=== PATIENT | female | born 1940 | race Caucasian/White ===

== ENCOUNTER 2016-10-26 18:33 | Emergency (ER) | payer OTHER ==
--- NOTE | ~2016-10-26 | EKG ---
PATIENT: KHANG CHAVIRA UNIT #: [id number] Ventricular Rate: 78 BPM Atrial Rate: 80 BPM QRS Duration: 178 ms Q-T Interval: 448 ms QTC Calculation(Bezet): 510 ms Calculated R [place]: -63 degrees Calculated T [place]: 127 degrees Diagnosis Line: Electronic ventricular pacemaker Diagnosis Line: When compared with ECG of 04-JUL-2014 20:50, Diagnosis Line: Electronic ventricular pacemaker has replaced Diagnosis Line: Atrial fibrillation Diagnosis Line: Confirmed by NOELLE BOYLE MD ([id number]) on Diagnosis Line: 10/28/2016 4:04:34 PM INTERPRETING MD: [place] ANGUIANO
--- NOTE | ~2016-10-26 | CR72 ---
[facility]. [facility] A Service of [facility] & [facility] RADIOLOGY TEXT RESULTS PATIENT: KHANG CHAVIRA LOCATION: SED : 38 UNIT #: [id number] AGE: [address]: Magdiel Rebollar DO SEX: F ORDER DR: [id number] [address] [address] [id number] E MR#: [id number] #: [id number] NAME: KHANG CHAVIRA : 1940 SEX: F STUDY DATE/TIME: 10/26/2016 19:52 UNIT: SED ROOM: STUDY DESCRIPTION: CR Chest Single View Portable Attending Physician: Magdiel Rebollar Ordering Physician: Magdiel Rebollar Primary Care Physician: Cj Ghosh M.D. MEDICAL IMAGING REPORT This report is preliminary unless electronic signature is present. EXAM Portable chest HISTORY Shortness of air, decreased urine output today. COMPARISON 10/10/2016 FINDINGS Portable view chest demonstrates moderate lung volumes slightly under penetrated technique. Cardiomegaly with mild prominence of the pulmonary vascular interstitium could reflect early CHF. Single-lead pacemaker noted. No sizeable effusions. No pneumothorax. Dictated by... Elias Rebollar M.D. THIS IS AN ELECTRONICALLY VERIFIED REPORT Elias Rebollar M.D. at 10/27/2016 2:03 PM JOSE/braeden TD: 10/26/2016 22:47 JOB #: [id number] MEDICAL IMAGING REPORT Page 1 of 1
[~2016-10-26 18:33] MED LIST: ALAVERT10 MG PO; ALDACTONE PO; ALPRAZOLAM PO; AMBIEN PO; AMIODARONE PO; AMOXICILLIN PO; BACLOFEN10 MG PO; BUMEX PO; CARDIZEM CD PO; CARTIA XT180 M1 PO; CIPRO PO; CLARITIN10 M3 PO; COLACE PO; COLESTID PO; DESYREL50 MG PO; DIGITEK125 MC1 PO; FUROSEMIDE40 MG PO; HYDROCODONE 7.5MG PO; KLOR-CON PO; LASIX PO; LEXAPRO PO; LEXAPRO20 MG PO; LORTAB 10-5001 EACH PO; LORTAB 7.5-5001 TAB PO; METOPROLOL PO; METOPROLOL SUCC25 MG PO; MS CONTIN PO; NEURONTIN100 MG PO; NORVASC PO; OMEPRAZOLE40 MG PO; PAREGORIC2 MG/5 ML PO; PHENERGAN PO; PRILOSEC PO; SINGULAIR PO; TEMAZEPAM PO; VICODIN 5/500 T1 TAB PO; WARFARIN PO; WARFARIN SODIUM2 MG PO
[2016-10-26] MEDS ORDERED: LIPITOR PO (18:38)
[2016-10-26] MEDS ORDERED: CYMBALTA PO (18:38)
[2016-10-26] MEDS ORDERED: LISINOPRIL PO (18:38)
[2016-10-26] MEDS ORDERED: BACLOFEN PO (18:41)
[2016-10-26] MEDS ORDERED: LASIX PO (18:49)
[2016-10-26 20:25] LABS: ALBUMIN SERUM 3.8 g/dL (3.5-5.0); BILIRUBIN, DIRECT 0.2 mg/dL (0.0-0.2); BILIRUBIN,INDIRECT 0.7 mg/dL (0.0-0.9); BILIRUBIN,TOTAL 0.9 mg/dL (0.2-2.0); CALCIUM SERUM 8.7 mg/dL (8.4-10.2); GLOM FILT RATE Estimated 54.3 mL/min (>60); POTASSIUM 3.5 mmol/L (3.5-5.1); PROTEIN TOTAL SERUM 7.4 g/dL (6.0-8.3)
[2016-10-26 20:47] LABS: BASOPHIL# 0.1 X10e3 (0-0.3); BASOPHIL% 1.2 % (0-2.5); EOSINOPHIL% 0.7 % (0.0-7.0); HEMATOCRIT 36.3 % (35.0-45.0); HEMOGLOBIN 11.9 gm/dL (12.0-16.0); LYMPHOCYTE# 1.4 X10e3 (1.0-3.5); LYMPHOCYTE% 21.6 % (17.0-45.0); MEAN CELL VOLUME 89.9 FL (83-96); MEAN CORPUSCULAR HEMOGLOBIN 29.5 PG (28-34); MEAN CORPUSCULAR HGB CONC 32.9 g/dL (30-36); MONOCYTE# 0.7 X10e3 (0-1.0); MONOCYTE% 10.8 % (3.0-12.0); NEUTROPHIL# 4.3 X10e3 (1.5-7.1); NEUTROPHIL% 65.7 % (40-75); PLATELET COUNT 208 X10e3 (140-420); RED BLOOD COUNT 4.04 X10e (3.90-5.30); RED CELL DISTRIBUTION WIDTH 15.7 % (11.0-15.5); WHITE BLOOD COUNT 6.6 X10e3 (4.0-10.5)
[2016-10-26 20:48] LABS: DIFF IND NO
[2016-10-26 21:07] LABS: POC - TROPONIN <0.05 ng/mL (<=0.05)
[2016-10-26 22:02] LABS: INR 2.9; PROTHROMBIN TIME (PATIENT) 33.4 SECONDS (9.5-12.4)
[2016-10-26 22:09] LABS: PARTIAL THROMBOPLASTIN TIME 37.6 SECONDS (25.6-38.1)
[2016-10-26 23:55] LABS: URINE SOURCE CLEAN CATCH
[2016-10-26 23:58] LABS: URINE APPEARANCE CLEAR; URINE BILIRUBIN NEG (NEG); URINE BLOOD TRACE-LYSED (NEG); URINE COLOR YELLOW; URINE GLUCOSE NEG (NORM); URINE KETONE NEG (NEG); URINE LEUKOCYTE ESTERASE 1+ (NEG); URINE NITRATE NEG (NEG); URINE PH 6.5 (5-8); URINE PROTEIN NEG (NEG); URINE SPECIFIC GRAVITY <=1.005 (1.003-1.035); URINE UROBILINOGEN 0.2 MG/DL (NORM)
[2016-10-27] LABS: MICRO INDICATED? YES
[2016-10-27 00:08] LABS: CULTURE INDICATED? YES; URINE BACTERIA NEG (NEG); URINE GRANULAR CAST 0-2 /[HPF]; URINE HYALINE CAST 0-2 /[HPF]; URINE SQUAMOUS EPITHELIAL CELL FEW /[HPF]; URINE TRANSITIONAL EPI CELLS OCCAS /[HPF]; URINE WHITE BLOOD CELL CAST 0-2 /[HPF]
== END 2016-10-27 00:38 | disposition home or self-care (01) ==
LOC: SED 18:33
PROVIDERS: Emergency Medicine
DX: J20.9 Acute bronchitis, unspecified (principal); N39.0 Urinary tract infection, site not specified; E86.0 Dehydration; I50.9 Heart failure, unspecified; I25.2 Old myocardial infarction; I48.91 Unspecified atrial fibrillation; Z90.89 Acquired absence of other organs; Z88.2 Allergy status to sulfonamides; Z79.899 Other long term (current) drug therapy
CPT/HCPCS: 36415; 71010; 80048; 80076; 81003; 82553; 83880; 84484; 85025; 85379; 85610; 85730; 87086; 87088; 87186; 93005; 94640; 96361; 96374; 99285; J2930